=== PATIENT | female | born 1945 | race Caucasian/White ===

== ENCOUNTER 2017-11-01 13:49 | Emergency (ER) | payer OTHER ==
--- OUTSIDE RECORDS SUMMARY | 2017-11-01 13:51 | XMS REPORT | Clinical Summary ---
:1945 Author Organization [facility] Address [address] [place] [address] Care Team Providers Name Role Phone Rickey Easton MD Primary Care Provider Allergies Active Allergy Reactions Severity Noted Date Comments No Known Drug Allergies 06/16/2016 Current Medications Prescription Sig. Disp. Refills Start End Date Status Date HYDROcodone-acetamin Take 1 tablet by 0 Active ophen (NORCO) 5-325 mouth 2 (two) 6 mg per tablet times a day as needed. traMADol (ULTRAM) 50 tramadol 50 mg Active mg tablet tablet GLUCOSAMINE SULFATE Taking 2000mg Active (SYNOVACIN ORAL) daily pantoprazole pantoprazole 40 Active (PROTONIX) 40 MG EC mg tablet,delayed tablet release dofetilide (TIKOSYN) Tikosyn 250 mcg Active 250 MCG capsule capsule carvedilol (COREG) carvedilol 6.25 Active 6.25 MG tablet mg tablet cyclobenzaprine TAKE 1 TABLET 3 Active (FLEXERIL) 10 mg TIMES A DAY tablet NEEDED carvedilol CR (COREG Coreg CR 10 mg Active CR) 10 MG 24 hr capsule, extended capsule release carvedilol (COREG) Take 1 tablet 180 tablet 3 Active 12.5 MG tablet (12.5 mg total) 7 by mouth 2 (two) times a day. furosemide (LASIX) Take 1 tablet (40 90 tablet 4 Active 40 mg tablet mg total) by 7 mouth once daily. potassium chloride Take 1 tablet (20 90 tablet 3 07/06/20 Active (K-DUR) 20 MEQ CR mEq total) by 7 18 tablet mouth daily. digOXIN (LANOXIN) Take 1 tablet 90 tablet 1 Active 250 mcg tablet (250 mcg total) 7 by mouth once daily. ezetimibe (ZETIA) 10 Take 1 tablet (10 90 tablet 4 Active mg tablet mg total) by 7 mouth daily. enalapril (VASOTEC) Take 1 tablet (5 90 tablet 3 Active 5 MG mg total) by 7 tabletIndications: mouth daily. Essential hypertension carvedilol (COREG) Take 12.5 mg by 3 01/19/20 Discontinued 12.5 MG tablet mouth 2 (two) 6 17 times a day. furosemide (LASIX) Take 40 mg by 3 07/06/20 Discontinued 40 mg tablet mouth once daily. 6 17 ezetimibe (ZETIA) 10 Zetia 10 mg 07/06/20 Discontinued mg tablet tablet 17 enalapril (VASOTEC) enalapril maleate 11/12/19 Discontinued 5 MG tablet 5 mg tablet 17 digOXIN (LANOXIN) Take 1 tablet 90 tablet 1 07/06/20 Discontinued 250 mcg tablet (250 mcg total) 7 17 by mouth once daily. enalapril (VASOTEC) Take 1 tablet (5 90 tablet 3 07/06/20 Discontinued 5 MG mg total) by 7 17 tabletIndications: mouth daily. Essential hypertension carvedilol (COREG) Take 1 tablet 180 tablet 3 07/06/20 Discontinued 12.5 MG (12.5 mg total) 7 17 tabletIndications: by mouth 2 (two) Cardiomyopathy times a day. potassium chloride Take 1 tablet (20 90 tablet 0 06/14/20 Discontinued (K-DUR) 20 MEQ CR mEq total) by 7 17 tablet mouth daily. potassium chloride Take 1 tablet (20 90 tablet 3 07/06/20 Discontinued (K-DUR) 20 MEQ CR mEq total) by 7 17 tablet mouth daily. Active Problems Problem Noted Date Essential hypertension 07/06/2017 Cardiomyopathy 07/07/2016 Automatic implantable cardioverter-defibrillator in situ 06/16/2016 Hypercholesterolemia 06/16/2016 Systolic heart failure 06/16/2016 Encounters Date Type Specialty Care Team Description 07/06/2017 Office Visit Cardiology Jovon Garner MD Cardiomyopathy, unspecified type (Primary Dx); Essential hypertension 06/14/2017 Refill Cardiology Sindi Simeon MA Med Refill 04/06/2017 Refill Cardiology Berhane Monroy MA Med Refill 03/10/2017 Orders Only Cardiology Berhane Monroy MA 03/08/2017 Telephone Cardiology Jovon Garner MD Med Refill 01/18/2017 Refill Cardiology Sindi Simeon MA Med Refill 01/05/2017 Office Visit Cardiology Jovon Garner MD Cardiomyopathy ( Primary Dx); Automatic implantable cardioverter-defibrillator in situ 01/01/2017 Telephone Cardiology Jovon Garner MD Results 11/11/2016 Refill Cardiology Sindi Simeon MA Med Refill after 10/31/2016 Family History Relation Name Status Comments Father Mother Social History Tobacco Use Types Packs/Day Years Used Date Former Smoker Smokeless Tobacco: Never Used Alcohol Use Drinks/Week oz/Week Comments No Sex Assigned at Date Recorded Not on file Last Filed Vital Signs Vital Sign Reading Time Taken Blood Pressure 143/64 07/06/2017 1:39 PM NODE JS DEVELOPER Pulse 71 07/06/2017 1:39 PM NODE JS DEVELOPER Temperature - - Respiratory Rate - - Oxygen Saturation - - Inhaled Oxygen Concentration - - Weight 67.1 kg (148 lb) 07/06/2017 1:39 PM NODE JS DEVELOPER Height 160 cm (5' 3") 07/06/2017 1:39 PM NODE JS DEVELOPER Body Mass Index 26.22 07/06/2017 1:39 PM NODE JS DEVELOPER Plan of Treatment Date Type Specialty Care Team Description 01/04/2018 Office Visit Cardiology Jovon Garner MD [address] [address] Health Maintenance Due Date Last Done Comments COLONOSCOPY 1996 MAMMOGRAM 1996 ZOSTER VACCINE 2006 PNEUMOCOCCAL POLYSACCHARIDE VACCINE AGE 65 AND OVER 2011 PNEUMOCOCCAL-13 2011 INFLUENZA VACCINE 02/16/2018 Procedures Procedure Name Priority Date/Time Associated Diagnosis Comments ECHOCARDIOGRAM 2D Routine 12/28/2016 11:31 Cardiomyopathy Results for this COMPLETE W MMODE AM CDT procedure are in SPECTRAL COLOR DOPPLER the results ([id number]) section. after 10/31/2016 Results Clinic Performed Echocardiogram complete w contrast and 3D if needed (2016 11:31 AM) Specimen Performing Laboratory [facility] [address] [place] [address] Narrative [facility] Echocardiography Report Pat.Name:Renée CANNON.ID:[id number] .Date: 12/28/2016 Refer.MD:JOVON GARNER MD Exam Time: 12:11:00 PM Study Type:Routine Echo Height:63inWeight:155lb BSA: 1.74 m2 DOBAge:1945,71Y Sex: FEMALEBP:125/176 HR:59 bpm Sonogrphr: INDIRA Fields FASE Pat. Stat.:OutpatientRoom:[place] Study Status:Final Echo Event ID:[id number] Order ID:[id number] Reason for Study:Cardiomyopathy with no status change -routine (>1yr) History / Clinical:Congestive cardiomyopathy, Congestive heart failure Procedures:2D Echo, Colorflow Doppler Race:C SUMMARY: LV size is severely enlarged. EF=25%. A pacemaker wire is seen in the RV. LA volume is severely enlarged. Diastolic dysfunction Grade I (Mild): Impaired relaxation with normal LV filling pressures. Estimated PA systolic pressure is 25 mmHg, assuming a mean RAP of 5 mmHg. FINDINGS: LV: LV size is severely enlarged. LV function is severely depressed.EF=25%. RV: RV size is normal. A pacemaker wire is seen in the RV. RV functionis normal. LA: LA volume is severely enlarged. RA: RA volume is upper limits of normal. A pacemaker wire is seen. AO: Aortic root diameter is normal. AGATHA: No pericardial effusion. AV: No structural AV abnormalities noted. MV: No structural MV abnormalities noted. PV: No structural PV abnormalities noted. TV: No structural TV abnormalities noted. Mild tricuspid regurgitation Perez: Diastolic dysfunction Grade I (Mild): Impaired relaxation withnormal LV filling pressures. Other:Estimated PA systolic pressure is 25 mmHg, assuming a mean RAPof 5 mmHg. MEASUREMENTS: 2D Parasternal Long [place] LVIDd7.3 cmIndex 4.2 cm/m Ao An2.2 cm LVIDs6.9 cmAo Rtd 3.4 cm Index1.9 cm/m LV%fs5.5 % LV Iswb914.8 g(87-129) IVSd 0.7 cmRWT0.2 LVPWd0.7 cmLVOT 2.4 cm LA Ds3.5 cm LV EF SinglePlane LV Ad 57.1 cm2(9.5-22.3) LVESV 212.4 ml BHNDS948.7 ml (59-136) Yffrm690.9 ml/m LV SV 69.3 ml LV As 47.7 cm2(4-11.6) LV EF 24.6 %(55-75) LA Sng Plane LA Area 24.9 cm2(8.8-23.4) LA Vol86.4 ml Index49.6 ml/m LA LngAx 5.7 cm RA Sng Plane RA Area 19.9 cm2(8.3-19.5) RA Vol59.2 ml Index34 ml/m RA LngAx 5.7 cm DOPPLER LVOT For Flow LVOT Area4.5 cm2 LVOT SV 97.4 ml GJJRqgFfb069.4 cm/sHR59.8 bpm LVOTpkPG 4.2 mmHgLVOT CO 5.8 l/min LVOTmnPG 2.2 mmHgLVOT CI 3.3 l/m/m2 LVOT TVI21.5 cm WALL MOTION: RESTING WALL MOTION: Mid Anteroseptal, Apical Anterior, Apical Septal, Apical Inferior, Apical Lateral, Apical mendiola are akinetic.Basal Anteroseptal, Mid Anterior, Mid Inferoseptal, Mid Inferior, Mid Anterolateral mendiola are hypokinetic. Normal in all other mendiola. Wall Index=2 Signed 12/29/2016 03:48 PM Luca Morris M.D. Procedure Note Interface, Radiology Results In - 12/29/2016 3:50 PM CDT [facility] Echocardiography Report Pat.Name: MALAIKA CANNON.ID: [id number] .Date: 12/28/2016 Refer.MD: JOVON GARNER MD Exam Time: 12:11:00 PM Study Type:Routine Echo Height: 63in Weight: 155lb BSA: 1.74 m2 Age: 13 1945,71Y Sex: FEMALE BP: 125/176 HR: 59 bpm Sonogrphr: INDIRA Fields FASE Pat. Stat.:Outpatient Room: [place] Study Status:Final Echo Event ID:[id number] Order ID: [id number] Reason for Study:Cardiomyopathy with no status change -routine (>1yr) History / Clinical:Congestive cardiomyopathy, Congestive heart failure Procedures:2D Echo, Colorflow Doppler Race: C SUMMARY: LV size is severely enlarged. EF=25%. A pacemaker wire is seen in the RV. LA volume is severely enlarged. Diastolic dysfunction Grade I (Mild): Impaired relaxation with normal LV filling pressures. Estimated PA systolic pressure is 25 mmHg, assuming a mean RAP of 5 mmHg. FINDINGS: LV: LV size is severely enlarged. LV function is severely depressed. EF=25%. RV: RV size is normal. A pacemaker wire is seen in the RV. RV function is normal. LA: LA volume is severely enlarged. RA: RA volume is upper limits of normal. A pacemaker wire is seen. AO: Aortic root diameter is normal. AGATHA: No pericardial effusion. AV: No structural AV abnormalities noted. MV: No structural MV abnormalities noted. PV: No structural PV abnormalities noted. TV: No structural TV abnormalities noted. Mild tricuspid regurgitation Perez: Diastolic dysfunction Grade I (Mild): Impaired relaxation with normal LV filling pressures. Other: Estimated PA systolic pressure is 25 mmHg, assuming a mean RAP of 5 mmHg. MEASUREMENTS: 2D Parasternal Long [place] LVIDd 7.3 cm Index 4.2 cm/m Ao An 2.2 cm LVIDs 6.9 cm Ao Rtd 3.4 cm Index 1.9 cm/m LV%fs 5.5 % LV Mass 224.8 g (87-129) IVSd 0.7 cm RWT 0.2 LVPWd 0.7 cm LVOT 2.4 cm LA Ds 3.5 cm LV EF SinglePlane LV Ad 57.1 cm2 (9.5-22.3) LVESV 212.4 ml LVEDV 281.7 ml (59-136) Index 161.9 ml/m LV SV 69.3 ml LV As 47.7 cm2 (4-11.6) LV EF 24.6 % (55-75) LA Sng Plane LA Area 24.9 cm2 (8.8-23.4) LA Vol 86.4 ml Index 49.6 ml/m LA LngAx 5.7 cm RA Sng Plane RA Area 19.9 cm2 (8.3-19.5) RA Vol 59.2 ml Index 34 ml/m RA LngAx 5.7 cm DOPPLER LVOT For Flow LVOT Area 4.5 cm2 LVOT SV 97.4 ml LVOTpkVel 102.4 cm/s HR 59.8 bpm LVOTpkPG 4.2 mmHg LVOT CO 5.8 l/min LVOTmnPG 2.2 mmHg LVOT CI 3.3 l/m/m2 LVOT TVI 21.5 cm WALL MOTION: RESTING WALL MOTION: Mid Anteroseptal, Apical Anterior, Apical Septal, Apical Inferior, Apical Lateral, Apical mendiola are akinetic. Basal Anteroseptal, Mid Anterior, Mid Inferoseptal, Mid Inferior, Mid Anterolateral mendiola are hypokinetic. Normal in all other mendiola. Wall Index=2 Signed 12/29/2016 03:48 PM Luca Morris M.D. after 10/31/2016 Insurance Payer Benefit Plan / Group Subscriber ID Type Phone Address [place] xxxxxx-xx Commercial MEDICARE MEDICARE PART A AND B xxxxxxxxxx Medicare [place], [place] [phone] KYLIE RODRIGUEZ [address] [place] [phone]
[2017-11-01 15:32] LABS: Absolute Lymphocytes (CBC) 1.8 K/uL (0.7-4.9); Absolute Monocytes 0.6 K/uL (0.1-1.3); Absolute Neutrophil 4.1 K/uL (1.8-8.0); Basophils % 0.8 % (0-1.3); Eosinophils % 4.8 % (0-4.4); Hematocrit 43.7 % (36.0-45.0); Lymphocytes % 25.9 % (15.3-44.8); MCH 29.6 pg (27.0-35.0); MCV 88.6 fL (80-100); MPV 9.5 fL (7.6-11.3); RBC Red Blood Cell Count 4.93 M/uL (3.86-4.86)
[2017-11-01] MEDS ORDERED: NA CHLORIDE 0.9% 250 ML ONE (15:41)
--- NOTE | 2017-11-01 15:51 | EKG ---
Test Date: 2017-11-01 Test Time: 15:35:11 Railroader: VIKI MEASUREMENT RESULTS: Intervals: Rate: 79 HI: 132 QRSD: 130 QT: 422 QTc: 483 [place]: P: 28 HI: 132 QRS: 125 T: -31 INTERPRETIVE STATEMENTS: Atrial-sensed ventricular-paced rhythm Abnormal ECG Compared to ECG 09/12/2014 09:32:52 AV dual-paced complex(es) or rhythm no longer present Electronically Signed On 11-01-17 15:51:01 CDT by Galen Pop
[2017-11-01 15:52] LABS: Potassium 4.1 mEq/L (3.6-5.0)
--- NOTE | 2017-11-01 16:10 | RAD REPORT ---
EXAM DESCRIPTION: RAD - Chest Single View - 11/01/2017 4:05 pm CLINICAL HISTORY: Diabetes, chest pain COMPARISON: 09/12/2014, 08/02/2014 FINDINGS: Portable technique limits examination quality. The lungs are grossly clear. The heart is mildly prominent size with multilead pacer/defibrillator de vice in place. No displaced fractures. IMPRESSION: No acute intrathoracic process suspected.
--- NOTE | 2017-11-01 16:17 | ER ---
Nurse's Notes [facility] Name: Malaika Joya Age: 72 yrs Sex: Female : 1945 Arrival Date: 11/01/2017 Time: 13:59 Bed 25 Private MD: Diagnosis: Dehydration;Near syncope Presentation: 11/01 13:59 Presenting complaint: Patient states: "I was at [employer] and felt like I was going to [facility] pass out. My helped me lay down on the floor and I started to feel better. I think I have let myself get dehydrated again.". Transition of care: patient was not received from another setting of care. Onset of symptoms was November 01, 2017 at 13:15. Care prior to arrival: None. 13:59 Method Of Arrival: EMS: [facility] 13:59 Acuity: JHONATAN 3 lk1 17:00 Mechanism of Injury: No Mechanism of Injury. lk1 Triage Assessment: 14:24 General: Appears in no apparent distress. Behavior is calm, cooperative, appropriate lk1 for age. Pain: Denies pain. EENT: No signs and/or symptoms were reported regarding the EENT system. Neuro: Level of Consciousness is awake, alert, obeys commands, Oriented to person, place, time, situation, Moves all extremities. Full function Gait is steady, Speech is normal, Facial symmetry appears normal, Pupils are PERRLA. Cardiovascular: Heart tones S1 S2 present Capillary refill is brisk Patient's skin is warm and dry. Respiratory: Airway is patent Respiratory effort is even, unlabored, Respiratory pattern is regular, symmetrical. GI: No signs and/or symptoms were reported involving the gastrointestinal system. : No signs and/or symptoms were reported regarding the genitourinary system. Derm: No signs and/or symptoms reported regarding the dermatologic system. Musculoskeletal: No signs and/or symptoms reported regarding the musculoskeletal system. Historical: - Allergies: 14:03 No Known Drug Allergies; lk1 - PMHx: 14:03 Pacemaker; Myocardial infarction; cardiac arrest; Diabetes - NIDDM; CHF; Atrial Fib; lk1 - PSHx: 14:03 Tubal ligation; Hysterectomy; pacemaker with defib; lk1 - Immunization history:: Adult Immunizations up to date. - Social history:: Smoking status: Patient/guardian denies using tobacco. - Family history:: not pertinent. - Hospitalizations: : No recent hospitalization is reported. Screenin:30 Abuse screen: Denies threats or abuse. Denies injuries from another. Nutritional lk1 screening: No deficits noted. Tuberculosis screening: No symptoms or risk factors identified. Fall Risk Total Perkins Fall Scale indicates High Risk Score (45 or more points). Fall prevention measures have been instituted. Side Rails Up X 2 Placed Close to Nursing Station Frequent Obs/Assessments Occuring Family Present and informed to notify staff if the need to leave the bedside As available patient and family educated on Fall Prevention Program and Strategies. Assessment: 14:30 Reassessment: Patient and/or family updated on plan of care and expected duration. Pain lk1 level reassessed. Patient is alert, oriented x 3, equal unlabored respirations, skin warm/dry/pink. Patient denies pain at this time. Patient states feeling better. Patient states symptoms have improved. Critical care time stopped, patient has stabilized. Vital Signs: 13:47 BP 158 / 124; Pulse 76; Resp 16; Temp 97.9(O); Pulse Ox 99% on R/A; Pain 0/10; lk1 14:30 BP 116 / 84; Pulse 72; Resp 16; Pulse Ox 100% on R/A; Pain 0/10; lk1 15:00 BP 131 / 102; Pulse 75; Resp 15; Pulse Ox 100% on R/A; Pain 0/10; lk1 15:30 BP 110 / 82 Supine; Pulse 67; Resp 15; Pulse Ox 99% on R/A; lk1 15:30 BP 113 / 82; Pulse 76; Resp 16; Pulse Ox 100% on R/A; lk1 15:30 BP 116 / 92 Standing; Pulse 75; Resp 16; Pulse Ox 98% on R/A; lk1 16:00 BP 122 / 56; Pulse 67; Resp 15; Pulse Ox 97% on R/A; lk1 ED Course: 13:59 Patient arrived in ED. lk1 14:01 Triage completed. lk1 14:24 Arm band placed on right wrist. lk1 14:26 Missed attempt(s): 22 gauge in right antecubital area. Bleeding controlled, band aid lk1 applied, catheter tip intact. 14:27 Missed attempt(s): 22 gauge in right forearm. Bleeding controlled, band aid applied, lk1 catheter tip intact. 14:30 Patient has correct armband on for positive identification. Bed in low position. Call lk1 light in reach. Side rails up X 1. Adult w/ patient. 14:32 Baudilio Bedolla MD is Attending Physician. rn 15:05 Linh Holm, RN is Primary Nurse. lk1 15:46 EKG done, by mining engineering technologist. reviewed by Baudilio Bedolla MD. at1 16:01 Inserted saline lock: 22 gauge in left antecubital area, using aseptic technique. Blood la1 collected. 16:05 XRAY Chest (1 view) In Process Unspecified. EDMS 16:05 X-ray completed. Portable x-ray completed in exam room. Patient tolerated procedure mh1 well. 17:00 No provider procedures requiring assistance completed. IV discontinued, intact, lk1 bleeding controlled, No redness/swelling at site. Pressure dressing applied. Administered Medications: 15:20 Drug: NS 0.9% 250 ml Route: IV; Rate: 1 bolus; Site: left antecubital; lk1 15:45 Follow up: Response: No adverse reaction; IV Status: Completed infusion lk1 Outcome: 16:17 Discharge ordered by . rn 16:59 Discharged to home ambulatory, with family, with significant other. lk1 16:59 Condition: good 16:59 Discharge instructions given to patient, significant other, Instructed on discharge instructions, follow up and referral plans. medication usage, safety practices, Demonstrated understanding of instructions, follow-up care. 17:01 Patient left the ED. lk1 Signatures: Dispatcher [employer] EDMS Zenaida Villalta 1 Baudilio Bedolla MD MD rn gonzales, Amanda, burrer marker axle EKG Tat1 Ivan Storm RN RN la1 Linh Holm, RN RN lk1
--- NOTE | 2017-11-01 16:18 | EDPHYS ---
Physician Documentation [facility] Name: Malaika Joya Age: 72 yrs Sex: Female : 1945 Arrival Date: 11/01/2017 Time: 13:59 Bed 25 Private MD: ED Physician Baudilio Bedolla HPI: 11/01 16:14 This 72 yrs old Female presents to ER via EMS with complaints of Near Syncope.rn 16:14 The patient has experienced near-syncope. Onset: The symptoms/episode began/occurred rn just prior to arrival. Duration: This was a single episode. Current symptoms: Currently, the patient is not experiencing any symptoms. The patient has experienced similar episodes in the past. Reports [place] [employer], felt lightheaded, did not pass out, reports takes lasix and has been doing a lot of work outdoors, states "knows is dehydrated", not drinking well lately. No chest pain/sob/abd pain. Drank some fluid and laid down, now nearly back to normal. . Historical: - Allergies: 14:03 No Known Drug Allergies; lk1 - PMHx: 14:03 Pacemaker; Myocardial infarction; cardiac arrest; Diabetes - NIDDM; CHF; Atrial Fib; lk1 - PSHx: 14:03 Tubal ligation; Hysterectomy; pacemaker with defib; lk1 - Immunization history:: Adult Immunizations up to date. - Social history:: Smoking status: Patient/guardian denies using tobacco. - Family history:: not pertinent. - Hospitalizations: : No recent hospitalization is reported. ROS: 16:14 Constitutional: Negative for fever, chills, and weight loss, Eyes: Negative for injury, rn pain, redness, and discharge, Neck: Negative for injury, pain, and swelling, Cardiovascular: Negative for chest pain, palpitations, and edema, Respiratory: Negative for shortness of breath, cough, wheezing, and pleuritic chest pain, Abdomen/GI: Negative for abdominal pain, nausea, vomiting, diarrhea, and constipation, MS/Extremity: Negative for injury and deformity, Skin: Negative for injury, rash, and discoloration, Neuro: Negative for headache, weakness, numbness, tingling, seizure Exam: 16:14 Constitutional: This is a well developed, well nourished patient who is awake, alert, rn and in no acute distress. Head/Face: Normocephalic, atraumatic. Eyes: Pupils equal round and reactive to light, extra-ocular motions intact. Lids and lashes normal. Conjunctiva and sclera are non-icteric and not injected. Cornea within normal limits. Periorbital areas with no swelling, redness, or edema. Neck: Trachea midline, no thyromegaly or masses palpated, and no cervical lymphadenopathy. Supple, full range of motion without nuchal rigidity, or vertebral point tenderness. No Meningismus. Cardiovascular: Regular rate and rhythm with a normal S1 and S2. No gallops, murmurs, or rubs. Normal PMI, no JVD. No pulse deficits. Respiratory: Lungs have equal breath sounds bilaterally, clear to auscultation and percussion. No rales, rhonchi or wheezes noted. No increased work of breathing, no retractions or nasal flaring. Abdomen/GI: Soft, non-tender, with normal bowel sounds. No distension or tympany. No guarding or rebound. No evidence of tenderness throughout. MS/ Extremity: Pulses equal, no cyanosis. Neurovascular intact. Full, normal range of motion. Equal circumference. Neuro: Awake and alert, GCS 15, oriented to person, place, time, and situation. Cranial nerves II-XII grossly intact. Motor strength 5/5 in all extremities. Sensory grossly intact. Vital Signs: 13:47 BP 158 / 124; Pulse 76; Resp 16; Temp 97.9(O); Pulse Ox 99% on R/A; Pain 0/10; lk1 14:30 BP 116 / 84; Pulse 72; Resp 16; Pulse Ox 100% on R/A; Pain 0/10; lk1 15:00 BP 131 / 102; Pulse 75; Resp 15; Pulse Ox 100% on R/A; Pain 0/10; lk1 15:30 BP 110 / 82 Supine; Pulse 67; Resp 15; Pulse Ox 99% on R/A; lk1 15:30 BP 113 / 82; Pulse 76; Resp 16; Pulse Ox 100% on R/A; lk1 15:30 BP 116 / 92 Standing; Pulse 75; Resp 16; Pulse Ox 98% on R/A; lk1 16:00 BP 122 / 56; Pulse 67; Resp 15; Pulse Ox 97% on R/A; lk1 MDM: 14:32 Patient medically screened. rn 16:14 Differential Diagnosis: vasovagal episode, dehydration, volume depletion. Data rn reviewed: vital signs, nurses notes, lab test result(s), EKG, radiologic studies, plain films, and as a result, I will discharge patient. Counseling: I had a detailed discussion with the patient and/or guardian regarding: the historical points, exam findings, and any diagnostic results supporting the discharge/admit diagnosis, lab results, radiology results, the need for outpatient follow up, to return to the emergency department if symptoms worsen or persist or if there are any questions or concerns that arise at home. Response to treatment: the patient's symptoms have markedly improved after treatment, and as a result, I will discharge patient. Special discussion: I discussed with the patient/guardian in detail that at this point there is no indication for admission to the hospital. It is understood, however, that if the symptoms persist or worsen the patient needs to return immediately for re-evaluation. 11/01 14:44 Order name: CBC with Diff; Complete Time: 15:59 rn 11/01 14:44 Order name: Basic Metabolic Panel; Complete Time: 15:59 rn 11/01 14:44 Order name: Troponin (emerg Dept Use Only); Complete Time: 15:59 rn 11/01 14:44 Order name: EKG; Complete Time: 15:20 rn 11/01 14:44 Order name: XRAY Chest (1 view); Complete Time: 16:14 rn 11/01 14:44 Order name: IV Start; Complete Time: 15:46 rn 11/01 14:44 Order name: EKG - Nurse/Tech; Complete Time: 15:46 rn 11/01 14:44 Order name: Orthostatics; Complete Time: 16:58 rn Administered Medications: 15:20 Drug: NS 0.9% 250 ml Route: IV; Rate: 1 bolus; Site: left antecubital; lk1 15:45 Follow up: Response: No adverse reaction; IV Status: Completed infusion lk1 Disposition: 11/01/17 16:17 Discharged to Home. Impression: Dehydration, Near syncope. - Condition is Stable. - Discharge Instructions: Dehydration, Adult, Near-Syncope. - Medication Reconciliation Form, Thank You Letter, Antibiotic Education, Prescription Opioid Use form. - Follow up: Private Physician; When: As needed; Reason: Recheck today's complaints, Re-evaluation by your physician. - Problem is new. - Symptoms have improved. Signatures: Dispatcher [employer] EDBaudilio Gomez MD MD rn Linh Holm RN RN lk1
[2017-11-01 17:19] VITALS: BP 122/56; O2SAT 97
== END 2017-11-01 17:01 | disposition home or self-care (01) ==
LOC: ER 13:49
DX: E86.0 Dehydration (principal); I25.2 Old myocardial infarction; I50.9 Heart failure, unspecified; Z95.0 Presence of cardiac pacemaker
CPT/HCPCS: 36415; 71045; 80048; 84484; 85025; 93005; 96360; 96365; 99284

== ENCOUNTER 2018-08-01 11:47 | Day surgery (SDC) | payer OTHER ==
[2018-07-29 12:35] LABS: Absolute Lymphocytes (CBC) 1.9 K/uL (0.7-4.9); Absolute Monocytes 0.5 K/uL (0.1-1.3); Absolute Neutrophil 3.3 K/uL (1.8-8.0); Eosinophils % 6.3 % (0-4.4); Lymphocytes % 30.3 % (15.3-44.8); MPV 9.6 fL (7.6-11.3); Monocytes % 8.7 % (3.3-12.3)
[2018-07-29 12:47] LABS: Potassium 3.8 mmol/L (3.5-5.1)
--- NOTE | 2018-07-29 14:12 | EKG ---
Test Date: 2018-07-29 Test Time: 11:59:16 Lpn Per Diem: MELY MEASUREMENT RESULTS: Intervals: Rate: 60 [place]: 160 QRSD: 160 QT: 484 QTc: 484 [place]: P: [place]: 160 QRS: -37 T: -56 INTERPRETIVE STATEMENTS: Electronic ventricular pacemaker Compared to ECG 11/01/2017 15:35:11 Atrial-sensed ventricular-paced complex(es) or rhythm no longer present Electronically Signed On 07-29-18 14:12:32 HONEY PROCESSOR by Galen Pop
--- OUTSIDE RECORDS SUMMARY | 2018-08-01 12:04 | XMS REPORT | Clinical Summary ---
:1945 Author Organization [facility] Address [address] [place] [address] Care Team Providers Name Role Phone Rickey Easton MD Primary Care Provider Allergies Active Allergy Reactions Severity Noted Date Comments No Known Drug Allergies 06/16/2016 Medications Medication Sig Dispensed Refills Start End Date Status Date HYDROcodone-acetamin Take 1 tablet by 0 Active ophen (NORCO) 5-325 mouth 2 (two) 6 mg per tablet times a day as needed. carvedilol (COREG) Take 1 tablet 180 tablet 3 Active 12.5 MG tablet (12.5 mg total) 7 by mouth 2 (two) times a day. enalapril (VASOTEC) Take 1 tablet (5 90 tablet 3 Active 5 MG mg total) by 7 tabletIndications: mouth daily. Essential hypertension aspirin (ECOTRIN) 81 Take 81 mg by 0 Active MG enteric coated mouth daily. tablet cyclobenzaprine Take 10 mg by 0 Active (FLEXERIL) 10 mg mouth 3 (three) tablet times a day as needed for muscle spasms. gabapentin Take 100 mg by 0 Active (NEURONTIN) 100 mg mouth 3 (three) capsule times a day. digOXIN (LANOXIN) TAKE 1 TABLET BY 90 tablet 3 Active 250 mcg tablet MOUTH EVERY DAY 8 furosemide (LASIX) Take 1 tablet 90 tablet 3 Active 40 mg tablet (40 mg total) by 8 mouth daily. potassium chloride TAKE 1 TABLET 90 tablet 3 05/20/20 Active (K-DUR) 20 MEQ CR (20 MEQ TOTAL) 8 19 tablet BY MOUTH DAILY. traMADol (ULTRAM) 50 tramadol 50 mg 0 01/12/20 Discontinued mg tablet tablet 18 GLUCOSAMINE SULFATE Taking 2000mg 0 01/12/20 Discontinued (SYNOVACIN ORAL) daily 18 pantoprazole pantoprazole 40 0 01/12/20 Discontinued (PROTONIX) 40 MG EC mg 18 tablet tablet,delayed release dofetilide (TIKOSYN) Tikosyn 250 mcg 0 01/12/20 Discontinued 250 MCG capsule capsule 18 carvedilol (COREG) carvedilol 6.25 0 01/12/20 Discontinued 6.25 MG tablet mg tablet 18 cyclobenzaprine TAKE 1 TABLET 3 0 01/14/20 Discontinued (FLEXERIL) 10 mg TIMES A DAY 18 tablet NEEDED carvedilol CR (COREG Coreg CR 10 mg 0 01/12/20 Discontinued CR) 10 MG 24 hr capsule, 18 capsule extended release furosemide (LASIX) Take 1 tablet 90 tablet 4 02/10/20 Discontinued 40 mg tablet (40 mg total) by 7 18 mouth once daily. potassium chloride Take 1 tablet 90 tablet 3 07/06/20 (K-DUR) 20 MEQ CR (20 mEq total) 7 18 tablet by mouth daily. digOXIN (LANOXIN) Take 1 tablet 90 tablet 1 02/22/20 Discontinued 250 mcg tablet (250 mcg total) 7 18 by mouth once daily. ezetimibe (ZETIA) 10 Take 1 tablet 90 tablet 4 01/12/20 Discontinued mg tablet (10 mg total) by 7 18 mouth daily. minocycline Take 1 capsule 10 capsule 0 01/19/20 (MINOCIN) 100 MG (100 mg total) 8 18 capsule by mouth 2 (two) times a day for 5 days. traMADol (ULTRAM) 50 Take 1 tablet 20 tablet 0 01/19/20 mg tablet (50 mg total) by 8 18 mouth every 6 (six) hours as needed for moderate pain for up to 5 days. furosemide (LASIX) Take 1 tablet 90 tablet 3 05/10/20 Discontinued 40 mg tablet (40 mg total) by 8 18 mouth daily. furosemide (LASIX) Take 1 tablet 90 tablet 2 05/10/20 Discontinued 40 mg tablet (40 mg total) by 8 18 mouth daily. Active Problems Problem Noted Date Essential hypertension 07/06/2017 Cardiomyopathy 07/07/2016 Automatic implantable cardioverter-defibrillator in situ 06/16/2016 Hypercholesterolemia 06/16/2016 Systolic heart failure 06/16/2016 Encounters Date Type Specialty Care Team Description 07/05/2018 Office Visit Cardiology Jovon Krishna Other cardiomyopathy (HCC) (Primary Dx); MD Alicia Systolic heart failure, unspecified HF chronicity (HCC) 05/20/2018 Refill Cardiology Jovon Krishna Med Refill MD Alicia 05/10/2018 Refill Cardiology [place]anco Med Refill SindiELOISE agosto 05/10/2018 Orders Only Cardiology Berhane Monroy MA 02/21/2018 Refill Cardiology Jovon Krishna Refill MD Alicia 02/09/2018 Orders Only Cardiology Berhane Monroy MA 01/13/2018 Anesthesia Event Procedural Will, [place] [facility] Cardiology 01/13/2018 Surgery Procedural Ramshayna Sameer Ep aicd implant single Cardiology MD Nagi dual bi vent [[id number] (CPT)] 01/13/2018 Hospital Encounter Procedural Sameer Helton Cardiac arrest; Cardiology MD Nagi Ventricular fibrillation; V tach 01/04/2018 Office Visit Cardiology Jovon Krishna Cardiomyopathy, unspecified type (Primary Dx); MD Alicia Automatic implantable cardioverter-defibrillator in situ after 07/31/2017 Family History Relation Name Status Comments Father Mother Social History Tobacco Use Types Packs/Day Years Used Date Former Smoker Smokeless Tobacco: Never Used Alcohol Use Drinks/Week oz/Week Comments No Sex Assigned at Date Recorded Not on file Job Start Date Occupation Industry Not on file Not on file Not on file Travel History Travel Start Travel End No recent travel history available. Last Filed Vital Signs Vital Sign Reading Time Taken Blood Pressure 143/59 07/05/2018 2:18 PM ULTRASOUND TECH Pulse 61 07/05/2018 2:18 PM ULTRASOUND TECH Temperature 36.4 C (97.6 F) 01/13/2018 3:19 PM CDT Respiratory Rate 15 01/13/2018 5:00 PM CDT Oxygen Saturation 93% 01/13/2018 5:00 PM CDT Inhaled Oxygen Concentration - - Weight 68 kg (150 lb) 07/05/2018 2:18 PM ULTRASOUND TECH Height 160 cm (5' 3") 07/05/2018 2:18 PM ULTRASOUND TECH Body Mass Index 26.57 07/05/2018 2:18 PM ULTRASOUND TECH Plan of Treatment Date Type Specialty Care Team Description 12/28/2018 Appointment Procedural Cardiology 01/03/2019 Office Visit Cardiology Jovon Krishna MD [address] [address] [phone] Health Maintenance Due Date Last Done Comments BREAST CANCER SCREENING 1996 COLON CANCER SCREENING 1996 SHINGLES VACCINES (1 of 2) 1996 PNEUMOCOCCAL POLYSACCHARIDE VACCINE AGE 65 AND OVER 2011 PNEUMOCOCCAL-13 2011 INFLUENZA VACCINE 02/16/2018 Implants Implanted Type Area Journalism Teacher Device Shelf Model / Identifier Expiration Serial / Date Lot Pocket Device Cangaroo Ecm 9.5cm X 6.9cm Xl - [id number] Cardiovascular N/A: 09/08/2020 CMCV 009 XLG / Implanted: Qty: 1 on 01/13/2018 by Sameer Helton MD Implants N/A / [id number] Gravity Meter Observer-D Momentum Is1 Df4 - [id number] Defibrillator ICD N/A: [place] [id number] / Implanted: Qty: 1 on 01/13/2018 by Sameer Helton MD Devices N/A SCIENTIFIC- CRM / Procedures Procedure Name Priority Date/Time Associated Comments Diagnosis EP AICD GENERATOR Routine 01/13/2018 2:55 Cardiac arrest Results for this CHANGE PM CDT Ventricular procedure are in fibrillation the results V tach section. EP AICD IMPLANT SINGLE Routine 01/13/2018 2:55 Cardiac arrest Results for this DUAL BI VENT PM CDT Ventricular procedure are in fibrillation the results V tach section. ECHOCARDIOGRAM 2D Routine 01/04/2018 4:04 Cardiomyopathy, Results for this COMPLETE W MMODE PM CDT unspecified type procedure are in SPECTRAL COLOR DOPPLER the results (20153) section. after 07/31/2017 Results Cv electrophysiology procedure (01/13/2018 2:55 PM CDT) Narrative Performed At CONTAINER COORDINATOR: NILO Helton. COMPLICATIONS: None. ESTIMATED BLOOD LOSS: 10 mL. SPECIMEN REMOVED: Biventricular ICD pulse generator. ANESTHESIA: Monitored anesthesia care. PROCEDURES PERFORMED: 1.Biventricular ICD pulse generator explantation and replacement. 2.Defibrillation threshold testing. PREOPERATIVE DIAGNOSES: 1.Biventricular ICD pulse generator at elective replacement indicator. 2.Ventricular tachycardia. 3.History of cardiac arrest in 2006. 4.Dilated cardiomyopathy, ejection fraction 31%. 5.Left ventricular apical aneurysm. 6.Chronically high right ventricular threshold. 7.Epicardial left ventricular leads x2. POSTOPERATIVE DIAGNOSES: 1.Biventricular ICD pulse generator at elective replacement indicator. 2.Ventricular tachycardia. 3.History of cardiac arrest in 2006. 4.Dilated cardiomyopathy, ejection fraction 31%. 5.Left ventricular apical aneurysm. 6.Chronically high right ventricular threshold. 7.Epicardial left ventricular leads x2. HISTORY OF PRESENT ILLNESS: The patient is a 72-year-old female with the above-noted medical history, was referred for an ICD pulse generator explantation and replacement for elective replacement indicator.Her RV thresholds were chronically high, hence she has been paced in the LV only fashion.She also has a second epicardial LV lead that was previously noted to be high but will be rechecked on this occasion. PROCEDURE IN DETAIL: The patient was brought to the EP lab in a fasting state.Informed consent was obtained.The patient was prepped and draped in the usual sterile fashion. Monitored anesthesia care was used for the procedure.A 1% lidocaine was administered to the left upper chest.A 5-cm incision was made.Using cautery and blunt dissection, access to the old ICD pocket was achieved.We carefully dissected free the generator and the pulse generator leads.The second epicardial LV lead was uncapped and retested demonstrating a higher capture threshold at 4.2 volts at 1.2 milliseconds, hence this was recapped.The pocket was modified to accommodate the new device.The leads were connected from the old device and then connected to the new device.The pocket was flushed. Adequate hemostasis was achieved.The device was then placed in a kangaroo pouch to minimize the risk of infection.This was then placed in the pocket and sutured to the pocket floor with 2-0 Vicryl.The pocket was then closed using 2-0 Vicryl in 2 layers followed by 4-0 Monocryl followed by Dermabond and Prineo.Prior to complete closure, defibrillation threshold testing was successfully performed.The patient tolerated the procedure well without any hemodynamic, neurological, or respiratory sequelae. FINDINGS: The patient has a [employer] device, model #G124, serial #[id number]. The atrial lead is a Medtronic lead, model #5076, serial #[id number].Date of implant was January 17, 2007.The RV lead is a Medtronic lead, model #6947M, serial #[id number].The epicardial lead that was utilized as a Medtronic lead model #5071, serial #[id number].The explant device was a Medtronic device, model #SRWJ1B4, date of implant was March 22, 2014, serial number was [id number]. There was old capped RV lead as well and then an old unipolar epicardial capped LV lead.The capped RV lead is a [address] lead. P-waves are 3.1 millivolts, paced threshold is 0.4 volt at 0.4 milliseconds, pacing impedance of 459 ohms.R-waves of 3.9 millivolts, pacing threshold is 6.5 volt at 1.5 milliseconds, pacing impedance of 294 ohms and LV waves of 2.1 millivolts, pacing threshold of 3.5 volts at 1.2 milliseconds, pacing impedance of 334 ohms.Defibrillation threshold testing was performed using a drive train of 400 milliseconds, coupling interval of 310, 320, and then 330 milliseconds. No VF could be induced.Fib high was utilized to induce VF and shock was delivered at 20 joules and with high-voltage impedance of 33 ohms.The patient was programmed back to her previous settings with a lower limit of 60, upper limit of 120, and a VT detection zone of 150 to 210, slow VT zone from 210 to 240 with 2 runs of ATP followed by shock and a VT zone for heart rates greater than 240 beats per minute. CONCLUSION: 1.Successful biventricular ICD pulse generator explantation replacement. 2.Chronically elevated right ventricular leads.Hence, the patient is paced in LV only configuration.The second capped epicardial LV lead did not have any better capture threshold.Hence, it was not utilized.DFT was less than or equal to 20 joules.A kangaroo antibiotic pouch was utilized. RECOMMENDATIONS: The patient will complete the appropriate postprocedural wound care and activity restrictions. Performing Organization Address City/State/Zipcode Phone Number [facility] [address] [place] [address] Echocardiogram complete w contrast and 3D if needed (01/04/2018 4:04 PM CDT) Narrative Performed At [facility] Echocardiography Report Pat.Name:Renée CANNON.ID:[id number] .Date: 01/04/2018 Exam Time: 4:19:00 PM Study Type:Routine EchoHeight:63in Weight:147.62lbBSA: 1.7 m2 DOBAge:1945,72YSex: FEMALE HR:63 bpmSonogrphr: Joelle Vega RDCS, RVT Pat. Stat.:OutpatientRoom:[place] Study Status:Final Echo Event ID:[id number] Order ID:[id number] Reason for Study:Cardiomyopathy with no status change -routine (<1yr) History / Clinical:Congestive cardiomyopathy, Congestive heart failure Procedures:2D Echo, Colorflow Doppler Race:C SUMMARY: -LV volume is severely enlarged (136 mL/m2). LV EF is moderately to severely depressed. Wall motion abnormalities are noted; apical aneurysm. EF is 31%. -Diastolic dysfunction Grade I (Mild): Impaired relaxation with normal LV filling pressures. -RV size is normal. RV systolic function is normal. FINDINGS: LV: LV volume is severely enlarged (136 mL/m2). LV EF is moderatelyto severely depressed. EF is 31%. Wall motion abnormalitiesare noted; apical aneurysm. RV: RV size is normal. A pacemaker wire is seen in the RV. RV systolicfunction is normal. LA: LA volume is moderately enlarged. RA: RA volume is upper limits of normal. A pacemaker wire is seen. AO: Aortic root diameter is normal. AGATHA: No pericardial effusion. AV: No structural AV abnormalities noted. MV: Mild mitral annular calcification. A trace of mitral regurgitation. PV: No structural PV abnormalities noted. TV: No structural TV abnormalities noted. A trace of tricuspid regurgitation Perez: Diastolic dysfunction Grade I (Mild): Impaired relaxation withnormal LV filling pressures. Other:Insufficient TR jet to estimate PA systolic pressure. MEASUREMENTS: 2D Parasternal Long [place] LVOT 2 cmLA Ds3.3 cm LVIDd5.9 cmIndex3.5 cm/m Ao An2.3 cm LVIDs5 cmAo Rtd 3.1 cm Index1.8 cm/m LV%fs 15.3 % LV Zglm553.9 g(87-129) IVSd 0.7 cmRWT0.3 LVPWd0.8 cm LA Sng Plane LA Area 23.7 cm2(8.8-23.4) LA Vol76.9 ml Index45.3 ml/m LA LngAx 6.2 cm RA Sng Plane RA Area 19.2 cm2(8.3-19.5) RA Vol55.8 ml Index32.8 ml/m RA LngAx 5.9 cm EF Biplane HGG879.3 mlEF31 % DZE883.5 mlHR59 bpm SV71.8 mlCO 4.2 l/min DOPPLER LVOT Stroke Vol LVOT 2 cmLVOT CO4.3 l/min LVOT TVI22.9 cmLVOT CI2.5 l/m/m2 LVOT Tm318 eqctGN03 bpm LVOT SV 72.1 ml MV E/A Ratio MV pkE90.7 cm/s (60-130) MV E/A 0.8 MV pkA 112.4 cm/s IVRT IVRT 119 msec WALL MOTION: RESTING WALL MOTION: Apical Inferior, Apical mendiola are aneurysmal.Basal Anteroseptal, Basal Inferoseptal, Mid Anterior, Mid Anteroseptal, Mid Inferoseptal, Apical Anterior, Apical Septal, Apical Lateral mendiola are akinetic. Normal in all other mendiola. Wall Index=2.4 Signed 01/05/2018 02:22 PM Roberto Paige M.D. Procedure Note Interface, Radiology Results In - 01/05/2018 2:31 PM CDT [facility] Echocardiography Report Pat.Name: ALEKSANDAR CANNON Pat.ID: [id number] St.Date: 01/04/2018 Exam Time: 4:19:00 PM Study Type:Routine Echo Height: 63in Weight: 147.62lb BSA: 1.7 m2 Age: 12 1945,72Y Sex: FEMALE HR: 63 bpm Sonogrphr: Joelle Vega RDCS, RVT Pat. Stat.:Outpatient Room: [place] Study Status:Final Echo Event ID:[id number] Order ID: [id number] Reason for Study:Cardiomyopathy with no status change -routine (<1yr) History / Clinical:Congestive cardiomyopathy, Congestive heart failure Procedures:2D Echo, Colorflow Doppler Race: C SUMMARY: -LV volume is severely enlarged (136 mL/m2). LV EF is moderately to severely depressed. Wall motion abnormalities are noted; apical aneurysm. EF is 31%. -Diastolic dysfunction Grade I (Mild): Impaired relaxation with normal LV filling pressures. -RV size is normal. RV systolic function is normal. FINDINGS: LV: LV volume is severely enlarged (136 mL/m2). LV EF is moderately to severely depressed. EF is 31%. Wall motion abnormalities are noted; apical aneurysm. RV: RV size is normal. A pacemaker wire is seen in the RV. RV systolic function is normal. LA: LA volume is moderately enlarged. RA: RA volume is upper limits of normal. A pacemaker wire is seen. AO: Aortic root diameter is normal. AGATHA: No pericardial effusion. AV: No structural AV abnormalities noted. MV: Mild mitral annular calcification. A trace of mitral regurgitation. PV: No structural PV abnormalities noted. TV: No structural TV abnormalities noted. A trace of tricuspid regurgitation Perez: Diastolic dysfunction Grade I (Mild): Impaired relaxation with normal LV filling pressures. Other: Insufficient TR jet to estimate PA systolic pressure. MEASUREMENTS: 2D Parasternal Long [place] LVOT 2 cm LA Ds 3.3 cm LVIDd 5.9 cm Index 3.5 cm/m Ao An 2.3 cm LVIDs 5 cm Ao Rtd 3.1 cm Index 1.8 cm/m LV%fs 15.3 % LV Mass 166.9 g (87-129) IVSd 0.7 cm RWT 0.3 LVPWd 0.8 cm LA Sng Plane LA Area 23.7 cm2 (8.8-23.4) LA Vol 76.9 ml Index 45.3 ml/m LA LngAx 6.2 cm RA Sng Plane RA Area 19.2 cm2 (8.3-19.5) RA Vol 55.8 ml Index 32.8 ml/m RA LngAx 5.9 cm EF Biplane EDV 231.3 ml EF 31 % ESV 159.5 ml HR 59 bpm SV 71.8 ml CO 4.2 l/min DOPPLER LVOT Stroke Vol LVOT 2 cm LVOT CO 4.3 l/min LVOT TVI 22.9 cm LVOT CI 2.5 l/m/m2 LVOT Tm 318 msec HR 60 bpm LVOT SV 72.1 ml MV E/A Ratio MV pkE 90.7 cm/s (60-130) MV E/A 0.8 MV pkA 112.4 cm/s IVRT IVRT 119 msec WALL MOTION: RESTING WALL MOTION: Apical Inferior, Apical mendiola are aneurysmal. Basal Anteroseptal, Basal Inferoseptal, Mid Anterior, Mid Anteroseptal, Mid Inferoseptal, Apical Anterior, Apical Septal, Apical Lateral mendiola are akinetic. Normal in all other mendiola. Wall Index=2.4 Signed 01/05/2018 02:22 PM Roberto Paige M.D. Performing Organization Address City/State/Zipcode Phone Number [facility] [address] [place] [address] after 07/31/2017 Insurance Payer Benefit Plan / Group Subscriber ID Type Phone Address AETNA MEDICARE AETNA MEDICARE HMO/PPO [facility] xxxxxxxx HMO Advance Directives Patient has advance care planning documents on file. For more information, please contact:[facility] [id number] [place] [address]
[2018-08-01] MEDS ORDERED: NA CHLORIDE 0.9% 500 ML ONE (12:15)
[2018-08-01] MEDS ORDERED: PHENYLEPHRINE 10% OPTH 5ML ONE (12:16)
[2018-08-01] MEDS ORDERED: CYCLOPENTOLATE 1% OPTH 2 ML ONE (12:16)
[2018-08-01] MEDS ORDERED: MOXIFLOXACIN HCL 10 DROPS/ML **OR USE OPTH ONE (12:16)
[2018-08-01] MEDS ORDERED: DUOVISC 1 KIT OPTH ONE ×2 (12:16→13:10)
[2018-08-01] MEDS ORDERED: TETRACAINE HCL 0.5% 2ML OPTH ONE (12:20)
[2018-08-01] MEDS ORDERED: BUPIVACAINE 0.25% PF 10 ML VIAL ONE (12:20)
[2018-08-01] MEDS ORDERED: LIDOCAINE 2% MPF 5 ML VIAL ONE ×3 (12:20→14:16)
[2018-08-01] MEDS ORDERED: PHENYLEPHRINE 10% OPTH 5ML OPTH ONE ×2 (12:35→12:40)
[2018-08-01] MEDS ORDERED: CYCLOPENTOLATE 1% OPTH 2 ML OPTH ONE ×2 (12:35→12:40)
[2018-08-01] MEDS ORDERED: NS 0.9% VIAL 10 ML ONE (13:09)
[2018-08-01] MEDS ORDERED: EPINEPHRINE/PF 1 MG/ML AMP ONE (13:09)
[2018-08-01] MEDS ORDERED: BALANCED SALT IRRIG PLAIN 500 ML BTL IRR ONE (13:09)
[2018-08-01] MEDS ORDERED: PROPOFOL 200 MG/20 ML VIAL IV ONE ×2 (13:10→14:16)
[2018-08-01] MEDS ORDERED: MIDAZOLAM HCL 2 MG/2 ML INJ ONE (13:10)
[2018-08-01] MEDS ORDERED: ONDANSETRON 4 MG/2 ML VIAL ONE (13:11)
[2018-08-01] MEDS ORDERED: FENTANYL CITR 100 MCG/2 ML ONE (14:22)
[2018-08-01] MEDS ORDERED: EPHEDRINE SULF 50 MG/ML VIAL ONE (14:37)
--- NOTE | 2018-08-01 14:49 | P.BOP ---
Preoperative diagnosis: Nuclear sclerotic cataract left eye Postoperative diagnosis: Same Primary procedure: Phacoemulsification with IOL left eye Estimated blood loss: None Anesthesia: General Complications: None Implants: [id number] +19.5 Transferred to: Recovery Room Condition: Good
[2018-08-01 15:39] VITALS: BP 131/57; TEMP 98.2; O2SAT 100
--- NOTE | 2018-08-02 01:50 | OP ---
Date of Procedure: 08/01/2018 Surgeon: Annalise Cortes MD Anesthesiologist: Danuta Miguel CRNA and Leighton Medina MD. Preoperative Diagnosis: Nuclear sclerotic cataract, left eye. Operation Performed: Phacoemulsification with intraocular lens implant, left eye. Anesthesia: General. Complications: None. Description Of Procedure: In the operating room the patient was prepped and draped in the usual sterile fashion for ophthalmic surgery. A lid speculum was placed in the left eye. Two paracentesis sites were made superiorly and inferiorly in the limbal cornea. Viscoat was placed in the anterior chamber and a crescent blade was used to make a corneal groove and tunnel, and a keratome was used to enter the anterior chamber. Provisc was placed in the anterior chamber and a 360 degree capsulotomy was performed with a cystitome. The lens was hydrodissected with BSS and rotated freely. The lens was removed with a stop and chop technique. 6.06 phaco CDE was used to remove the lens. Residual cortex was removed with the irrigation and aspiration. Provisc was placed in the capsular bag. A ZCB00 +19.5 lens was placed in the capsular bag without complications. Irrigation and aspiration were used to remove residual viscoelastic. The paracentesis sites were hydrated with BSS. The wound and paracentesis sites were inspected and found to be watertight. Vigamox 0.07 cc was placed intracamerally at the end of the procedure. The eye was irrigated with balanced salt solution. The eye was patched with a soft cotton patch and [place] metal shield. The patient was returned to day surgery in good condition. Comments: During irrigation and aspiration, an anterior basement membrane dystrophy blister was noted superiorly. It stayed intact for the whole operation. Discharge Instructions: Ms. Joya is discharged to home in good condition and is to follow up with Dr. Cortes in the morning. LUTHER/BINH Voice ID: [id number] Report ID: [id number]
== END 2018-08-01 16:05 | disposition home or self-care (01) ==
LOC: OR 11:47
PROVIDERS: ATTEND Ophthalmology Retina Specialist
PROC: 08RK3JZ Replacement of Left Lens with Synthetic Substitute, Percutaneous Approach (ICD-10-PCS; principal; 2018-08-01 12:00)
DX: H25.12 Age-related nuclear cataract, left eye (principal); M19.90 Unspecified osteoarthritis, unspecified site; I25.2 Old myocardial infarction; Z95.0 Presence of cardiac pacemaker; Z90.49 Acquired absence of other specified parts of digestive tract; Z90.710 Acquired absence of both cervix and uterus; Z83.511 Family history of glaucoma; Z83.3 Family history of diabetes mellitus; Z82.49 Family history of ischemic heart disease and other diseases of the circulatory system
CPT/HCPCS: 36415; 66984; 80048; 85025; 93005; J0171; J2405; J2704 ×2; J3010; J2250